=== PATIENT | male | born 1950 | race Caucasian/White ===

== ENCOUNTER → 2018-12-11 12:15 | Outpatient (CLI) | payer MEDICARE, OTHER, SELFPAY ==
--- NOTE | 2018-12-11 | DI.US.S_ITS ---
PROCEDURE: US PERIPH VENOUS LOW EXTREM RT INDICATIONS: RIGHT LEG SWELLING TECHNIQUE: Real-time imaging, as well as color and pulse Doppler interrogation, were performed of the lower extremity deep veins from the inguinal ligament to the popliteal fossa. COMPARISON: None. FINDINGS: The common femoral, femoral and popliteal veins are normally compressible, and free of intraluminal thrombus. Color and pulse Doppler demonstrate normal phasic intraluminal flow. There is normal augmentation response to distal compression maneuver. IMPRESSION: No DVT found right leg. Dictated by: Kavin Coe M.D. on 12/11/2018 at 13:12 Approved by: Kavin Coe M.D. on 12/11/2018 at 13:12
== END ==
PROVIDERS: PCP Family Medicine; Visit Provider Hospitalist
DX: M79.89 Other specified soft tissue disorders (principal)
CPT/HCPCS: 93971

== ENCOUNTER → 2018-12-30 08:02 | Outpatient (CLI) | payer MEDICARE, OTHER, SELFPAY ==
--- NOTE | 2018-12-30 08:04 | DI.RAD.S_ITS ---
PROCEDURE: XR KNEE RT 3V INDICATIONS: Right knee injury/ pain TECHNIQUE: 3 views of the knee were acquired. COMPARISON: None. FINDINGS: Bones: No fractures or dislocations. No suspicious bony lesions. There is moderate tricompartmental periarticular osteophyte formation. Soft tissues: Moderate joint effusion. N scattered small intra-articular loose bodies. o suspicious soft tissue calcifications. IMPRESSION: 1. Osteoarthritis. 2. Knee joint effusion. Intra-articular loose bodies. 3. No acute fracture. No osseous lesion. If symptoms or clinical suspicion for pathology persists, repeat plain films, or advanced imaging (CT, bone scan, or MRI) may be helpful for further assessment. Dictated by: Rios Maldonado M.D. on 12/30/2018 at 9:15 Approved by: Rios Maldonado M.D. on 12/30/2018 at 9:16
== END ==
PROVIDERS: PCP Family Medicine; Visit Provider Family Medicine
DX: M25.561 Pain in right knee (principal); M17.11 Unilateral primary osteoarthritis, right knee; M25.461 Effusion, right knee; M23.41 Loose body in knee, right knee
CPT/HCPCS: 73562

== ENCOUNTER → 2019-09-09 07:05 | Outpatient (CLI) | payer MEDICARE, OTHER, SELFPAY ==
[2019-09-09 08:37] LABS: Add Manual Diff / Slide Review NO; Basophils Absolute Auto 100 /uL (0-100); Basophils Percent Auto 0.8 % (0-2); Eosinophils Absolute Auto 300 /uL (0-450); Eosinophils Percent Auto 4.3 % (2-4); Hematocrit 45.3 % (41-53); Hemoglobin 15.2 g/dL (13.5-17.5); Lymphocytes Absolute Auto 1900 /uL (1100-4500); Lymphocytes Percent Auto 27.7 % (25-40); Mean Corpuscular HGB Conc 33.6 % (30-36); Mean Corpuscular Hemoglobin 29.4 PG (26-34); Mean Corpuscular Volume 87.4 fL (80-100); Monocytes Absolute Auto 700 /uL (0-900); Monocytes Percent Auto 9.5 % (3-14); Neutrophils Absolute Auto 4000 /uL (1500-7000); Neutrophils Percent Auto 57.7 % (50-75); Platelet Count 231 X10^3/uL (150-400); Red Blood Cell Count 5.19 X10^6/uL (4.5-5.9); Red Cell Distribution Width 13.5 % (11.6-14.8)
[2019-09-09 08:59] LABS: Alanine Aminotransferase 31 IU/L (<50); Albumin 3.9 g/dL (3.5-5.0); Albumin Globulin Ratio 1.4 (1.0-2.8); Alkaline Phosphatase 55 U/L (38-126); Aspartate Aminotransferase 31 IU/L (17-59); BUN Creatinine Ratio 22.2 (6-22); Bilirubin Total 0.6 mg/dL (0.2-1.3); Blood Urea Nitrogen 20 mg/dL (9-20); Calcium 9.7 mg/dL (8.4-10.2); Carbon Dioxide 28 mmol/L (22-32); Chloride 106 mmol/L (98-107); Cholesterol 142 mg/dL (140-199); Estimated Glomerular Filt Rate > 60.0 mL/min (>60); Globulin 2.8 g/dL (1.7-4.1); Glucose 88 mg/dL (80-110); HDL Cholesterol 45 mg/dL (40-60); HEMOLYSIS < 15 (0-50); LDL Cholesterol Calculated 87 mg/dL (<100); Sodium 141 mmol/L (137-145); Total Protein 6.7 g/dL (6.3-8.2); Triglycerides 51 mg/dL (35-150)
[2019-09-09 09:28] LABS: Prostate Specific Antigen Scrn 2.09 ng/mL (0.1-4.0)
== END ==
PROVIDERS: PCP Family Medicine; Referring Provider Family Medicine; Visit Provider Family Medicine
DX: E78.2 Mixed hyperlipidemia (principal); Z12.5 Encounter for screening for malignant neoplasm of prostate
CPT/HCPCS: 36415; 80053; 80061; 85025; G0103

== ENCOUNTER → 2020-03-14 13:41 | Outpatient (CLI) | payer MEDICARE, OTHER, SELFPAY ==
[2020-03-15 09:22] LABS: COVID19 Sendout Not Detected (Not Detect)
== END ==
PROVIDERS: PCP Family Medicine; Visit Provider Physician Assistant
DX: Z11.59 Encounter for screening for other viral diseases (principal)
CPT/HCPCS: 87635

== ENCOUNTER 2020-03-17 11:51 | Day surgery (SDC) | payer MEDICARE, OTHER, SELFPAY ==
--- NOTE | 2020-03-17 | PATH_ITS ---
[facility] Accession Number: [id number] . 01 Material submitted: . colon - COLON BIOPSY AT 35CM . 02 Diagnosis: Colon Polyp at 35 cm, Biopsy: Tubular adenoma. MRV 03/19/2020 1059 Local . 02 Electronically signed: . Cordell Kendrick MD, PhD, Pathologist NPI- [id number] . 01 Gross description: . COLON BIOPSY AT 35CM: Received in formalin is 1 fragment(s) of go, soft tissue measuring 0.4 x 0.3 x 0.3 cm submitted entirely in 1 cassette(s) /QBJ 03/18/2020 0924 Local . 02 Pathologist provided ICD-10: D12.6 . 02 CPT . 720915 Performed at: 01 [facility] [address] [facility], [place], [place] [id number] MD Tahir Jackson MD Phone: [phone] Performed at: 02 [facility] [address] [place], [place] [id number] MD Kimberly Torres MD Phone: [phone]
[2020-03-17 12:26] VITALS: BP 111/70; PULSE 50; RESP 14; TEMP 36.7; O2SAT 98; BMI 27.2
[2020-03-17] MEDS: SODIUM CHLORIDE 0.9% 1,000 ML 200 ML IV (12:33)
--- NOTE | 2020-03-17 12:58 | PM.HP.1 ---
History of Present Illness History of Present Illness Date Patient Seen: 03/17/20 Time Patient Seen: 12:58 Chief complaint: [facility] [place] Narrative: This is a 69-year-old man here for surveillance colonoscopy. He had a colonoscopy in 2011 were polyps were found, he was recommended to have a follow-up colonoscopy in 5 years. His other medical history includes a stroke in 2017 for which he has a small amount of residual visual deficit. He takes a daily aspirin for stroke prevention, and had a full workup it was not recommended anything else. He denies any melena, hematochezia, unexplained weight loss, unexplained abdominal pain. He is adopted and does not really know his family history relative to polyps or colon cancer. ROS: Thirteen system review is otherwise negative other than as mentioned below and in HPI. PE: GENERAL: Well groomed and cooperative. Appears stated age. Answers questions promptly and appropriately. Vital signs noted. HENT: Normocephalic, atraumatic. Hearing intact. EYES: Conjunctiva pink, sclera white, no periorbital swelling. CARDIOVASCULAR: Regular rate. No pedal edema. RESPIRATORY: Non-tachypneic, breathing comfortably on room air. GASTROINTESTINAL: Abdomen soft and non-distended GENITALURINARY: No flank tenderness. MUSCULOSKELETAL: Equal tone and mass bilaterally. SKIN: Warm, dry, soft, appropriate color for ethnicity. No other lesions, rashes, or wounds. NEURO: Alert and Oriented X 3. No gross sensory deficits, or cognitive issues. PSYCH: Appropriate affect and mood. Patient History Medical History Cardiac arrhythmia (Chronic 2006) Chicken pox (Resolved 1960) CVA (cerebral vascular accident) (Acute ~2016) Fractures (Resolved 1968) Measles (Resolved 1962) Mumps (Resolved 1960) Shoulder pain (Chronic 2003) Surgical History Anesthesia (Resolved) Bey's fracture of base of metacarpal bone of left thumb (Resolved 1969) History of hand surgery (Resolved 2009) Status post colonoscopy (Resolved 2013) Status post rotator cuff repair (Resolved 2005) Status post wrist surgery (Resolved 2007) Family & Social History Social History: household members spouse Tobacco & Substance use: Tobacco type smokeless tobacco Smoking Status Former smoker alcohol intake frequency 0-2 drinks per day Substance Use Type marijuana Meds Home Medications and Allergies Home Medications Medication Instructions Recorded Confirmed Type aspirin 81 mg PO QDAY #0 02/28/17 03/17/20 History naproxen sodium 220 mg tablet 220 mg PO BID PRN 12/11/18 03/17/20 History atorvastatin 10 mg tablet 10 mg PO HS #90 tab 08/22/19 03/17/20 Rx Allergies Allergy/AdvReac Type Severity Reaction Status Date / Time No Known Drug Allergies Allergy Verified 03/17/20 12:25 Exam Vital Signs (past 8 hours): - 03/17/20 12:26 Temperature 98.0 F Pulse Rate 50 L Respiratory Rate 14 Blood Pressure 111/70 Pulse Oximetry 98 Oxygen Delivery Method Room Air Assessment & Plan Assessment and plan (1) Personal history of colonic polyps: Status: Acute Assessment & Plan narrative: Risks and benefits of screening colonoscopy and possible polypectomy were discussed with the patient including risk of bleeding, perforation, need for additional procedures, risks of anesthesia. The patient desires to proceed with the colonoscopy procedure. COVID-19 COVID-19 status: Negative Result date/Date tested (Pos, Neg/Pending): 03/14/20 Time Spent With Patient Time with patient: 15-24 minutes Quality VTE Deep Vein Thrombosis/Pulmonary Embolism Present on Admission: No
[2020-03-17] MEDS: fentaNYL 250 MCG/5 ML INJ IV ×2 (13:05→13:13)
[2020-03-17] MEDS: MIDAZOLAM 5 MG/5 ML VIAL IV ×2 (13:05→13:13)
--- NOTE | 2020-03-17 13:28 | P.OP.ENDO_ITS ---
Operative Date/Time/Diagnoses Date of procedure: 03/17/20 Time of procedure: 13:28 Pre-op diagnosis: Personal history of colon polyps Post-op diagnosis: other (Single small colon polyp at 35 cm) Procedure & Clinicians Study performed: Colonoscopy Conscious sedation performed by the endoscopist Polypectomy with cold forceps Same procedure as scheduled: Yes Indications: Personal history of colon polyps. Due for follow-up colonoscopy. Surgeon: Natasha Andrade Procedure Notes Procedure in detail: The patient was brought to the room and placed in left lateral decubitus position with all bony prominences padded. A time-out was performed and then the patient was given procedural sedation starting with 4 mg of Versed and 100 mcg of fentanyl. Vitals were monitored throughout the procedure and remained stable. Once adequately sedated, the procedure was begun. A rectal exam was performed revealing no abnormalities. The colonoscope was then introduced to the rectum and advanced to the cecum in the usual fashion. The cecum was identified by the appendiceal orifice, the mucosal tri- fold, and the ileocecal valve. The scope was then retracted while rotating side to side and examining each mucosal fold. A small polyp was removed from the sigmoid colon at 35 cm using cold forceps. Moderate diverticulosis was seen throughout the descending and sigmoid colon. No signs of active diverticulitis were seen. At the conclusion of the procedure retroflexion was performed and small grade 1-2 internal hemorrhoids without stigmata of bleeding were seen. The scope was then withdrawn from the rectum the procedure was concluded. The patient tolerated the procedure well and was transferred to the PACU in stable condition. Scope withdrawal time: 9 Sedation minutes: 21 Findings: diverticulosis and polyp Specimen(s): other (Small polyp from 35 cm) Complications: none Impression: Diverticulosis, single small polyp from 35 cm Post-procedure Recommendations: Colonscopy in 10 years (If pathology is benign) Follow up: as needed Disposition: PACU
[2020-03-17 13:32] VITALS: BP 105/55; PULSE 50; RESP 15; TEMP 36; O2SAT 98
[2020-03-17 13:37] VITALS: BP 112/54; PULSE 46; RESP 13; TEMP 36.1; O2SAT 96
[2020-03-17 13:42] VITALS: BP 101/48; PULSE 58; RESP 14; TEMP 36; O2SAT 96
[2020-03-17 13:59] VITALS: BP 110/63; PULSE 44; RESP 16; TEMP 35.8; O2SAT 99
== END 2020-03-17 14:02 | disposition home or self-care (01) ==
PROVIDERS: PCP Family Medicine; Referring Provider Surgery; Visit Provider Surgery
PROC: 0DJD8ZZ Inspection of Lower Intestinal Tract, Via Natural or Artificial Opening Endoscopic (ICD-10-PCS; CPT 45378; principal; 2020-03-17 13:00)
DX: Z12.11 Encounter for screening for malignant neoplasm of colon (principal); D12.5 Benign neoplasm of sigmoid colon; K57.30 Diverticulosis of large intestine without perforation or abscess without bleeding; K64.1 Second degree hemorrhoids; Z86.010 Personal history of colon polyps; I69.398 Other sequelae of cerebral infarction; H53.9 Unspecified visual disturbance; Z79.82 Long term (current) use of aspirin; Z87.891 Personal history of nicotine dependence
CPT/HCPCS: 45380; 99152; J2250; J3010

== ENCOUNTER → 2021-05-28 07:30 | Outpatient (CLI) | payer MEDICARE, OTHER, SELFPAY ==
[2021-05-28 09:09] LABS: Add Manual Diff / Slide Review NO; Basophils Absolute Auto 100 /uL (0-100); Basophils Percent Auto 1.4 % (0-2); Eosinophils Absolute Auto 300 /uL (0-450); Eosinophils Percent Auto 5.3 % (2-4); Hematocrit 45.1 % (41-53); Hemoglobin 15.2 g/dL (13.5-17.5); Lymphocytes Absolute Auto 1900 /uL (1100-4500); Lymphocytes Percent Auto 29.2 % (25-40); Mean Corpuscular HGB Conc 33.8 % (30-36); Mean Corpuscular Hemoglobin 29.3 PG (26-34); Mean Corpuscular Volume 86.8 fL (80-100); Monocytes Absolute Auto 900 /uL (0-900); Neutrophils Absolute Auto 3200 /uL (1500-7000); Neutrophils Percent Auto 50.1 % (50-75); Platelet Count 215 X10^3/uL (150-400); Red Blood Cell Count 5.19 X10^6/uL (4.5-5.9); Red Cell Distribution Width 14.2 % (11.6-14.8); White Blood Cell Count 6.4 X10^3/uL (4.5-11.0)
[2021-05-28 09:18] LABS: Hemoglobin A1C% w Est Avg Glu 5.4 % (4.0-6.0)
[2021-05-28 09:50] LABS: BUN Creatinine Ratio 15.7 (6-22); Blood Urea Nitrogen 14 mg/dL (9-20); Calcium 9.4 mg/dL (8.4-10.2); Carbon Dioxide 28 mmol/L (22-32); Chloride 103 mmol/L (98-107); Estimated Glomerular Filt Rate > 60.0 mL/min (>60); Glucose 103 mg/dL (80-110); HEMOLYSIS < 15 (0-50); Potassium 4.6 mmol/L (3.4-5.1); Sodium 138 mmol/L (137-145)
== END ==
PROVIDERS: PCP Internal Medicine; Referring Provider Orthopaedic Surgery; Visit Provider Orthopaedic Surgery
DX: Z01.818 Encounter for other preprocedural examination (principal); R73.9 Hyperglycemia, unspecified; M25.562 Pain in left knee; Z01.812 Encounter for preprocedural laboratory examination
CPT/HCPCS: 36415; 80048; 83036; 85025; 93005; 93010

== ENCOUNTER → 2021-06-18 09:26 | Outpatient (CLI) | payer MEDICARE, OTHER, SELFPAY ==
[2021-06-18 11:29] LABS: COVID19 -Nasal RAPID Negative (Negative)
== END ==
PROVIDERS: PCP Internal Medicine; Visit Provider Nurse Practitioner Family
DX: Z20.822 Contact with and (suspected) exposure to COVID-19 (principal)
CPT/HCPCS: 87635; C9803

== ENCOUNTER 2021-06-21 11:08 | Day surgery (SDC) | payer MEDICARE, OTHER, SELFPAY ==
[2021-06-15 08:08] VITALS: BMI 32.5
[2021-06-21] VITALS (12 sets, daily range): BP systolic 96–133; BP diastolic 51–79; PULSE 50–63; RESP 11–18; TEMP 36.3–36.9; O2SAT 91–100; BMI 32.5
--- NOTE | 2021-06-21 06:00 | DI.RAD.S_ITS ---
PROCEDURE: XR KNEE LT 1TO2V INDICATIONS: post op total knee TECHNIQUE: 2 view(s) of the knee acquired. COMPARISON: [facility], CR, XR KNEE RT 3V, 12/30/2018, 8:06. FINDINGS: Bones: Patient is status post knee joint arthroplasty. Hardware components are in expected positions. Visualized bony structures are intact. Soft tissues: Overlying postoperative changes are noted. IMPRESSION: Expected appearance following knee arthroplasty. Dictated by: Rios Maldonado M.D. on 06/21/2021 at 15:54 Approved by: Rios Maldonado M.D. on 06/21/2021 at 15:54
[2021-06-21] MEDS: ACETAMINOPHEN 325 MG TABLET 975 MG PO (11:39)
[2021-06-21] MEDS: CELECOXIB 200 MG CAPSULE PO (11:42)
[2021-06-21] MEDS: PREGABALIN 75 MG CAPSULE PO (11:42)
[2021-06-21] MEDS: LACTATED RINGERS 1,000 ML 42 ML IV ×2 (12:15→15:55)
--- NOTE | 2021-06-21 12:19 | SUR.PREOP ---
preop: confirimed left knee as op site. clipping and cleaning done per hospital policy. Ready for OR.
--- NOTE | 2021-06-21 12:41 | PM.PREOP ---
Pre-operative Note COVID-19 COVID-19 status: Negative Result date/Date tested (Pos, Neg/Pending): 06/18/21 Interval Note History & Physical reviewed/Exam performed by Physician: Yes Changes to H&P: No
[2021-06-21] MEDS: CEFAZOLIN 2 GM/20 ML SYRINGE IV (13:51)
[2021-06-21] MEDS: TRANEXAMIC ACID 1,000 MG VIAL 1000 MG INJ ×2 (13:52→15:05)
--- NOTE | 2021-06-21 14:05 | SUR.OPER ---
Supine on padded OR bed. Pillow under head, arms secured on padded armboards <90 degree abduction. Safety belt across torso. Non-operative leg secured with tape over blanket over lower leg. Operative leg secured in DeMayo/Blake/Nathe positioner. Foam padded brace at thigh of operative leg.
[2021-06-21] MEDS: MORPHINE 4 MG/ML INJ INJ (14:13)
[2021-06-21] MEDS: BUPIVACAINE 0.25% (PF) 60 ML, EPINEPHrine 0.3 MG INJ (14:14)
--- NOTE | 2021-06-21 15:26 | P.OP_ITS ---
Operative Date/Time/Diagnoses Date of procedure: 06/21/21 Time of procedure: 15:26 Pre-op diagnosis: Left knee osteoarthritis Post-op diagnosis: same Procedure & Clinicians Procedure: Left total knee replacement Same procedure as scheduled: Yes Indications: The patient has had progressively worsening left knee pain with radiographic changes consistent with arthritis. Non-operative management has failed and the patient has requested total knee replacement. The risks, benefits and alternatives to surgery were discussed with the patient prior to proceeding. Risks discussed included, but were not limited to, failure to relieve pain, stiffness, infection, nerve damage, deep venous thrombosis, pulmonary embolism, stroke, coma, heart attack, permanent paralysis and , as well as the potential need for eventual revision of the prosthetic. Surgeon: Jamal Gonzalez Hotel Reservation Agent: Phlylis Mota Click Yes if Unassisted: No Anesthesia Type: General, Spinal and Local Operative Notes Findings: Significant medial and patellofemoral osteoarthritis with mild lateral osteoarthritis. Closure Type: primary Specimen(s): none sent Prosthetic devices, grafts, tissues, transplants, or devices: Implants used in this procedure were manufactured by the [employer] and [employer] and included the BCS II Journey total knee replacement with a size 6 left cobalt chromium femur, a size 6 left non porous tibial base plate, a 9 mm cross-linked polyethylene insert and a 35 mm oval Lorena II patella. Applied: implant(s) Estimated Blood Loss (mL): 25 Blood products transfused: none Tourniquet time (min): 47 Procedure in detail: The patient was seen in the pre-operative area, where the left knee was identified as the operative site and this was marked with my initials. The patient received pre-operative antibiotics, and was taken to the operating room and placed on the operative table in the supine position. After satisfactory anesthesia, a multimedia authoring specialist out was performed. The left leg was encircled with a tourniquet about the proximal thigh, and the leg was prepared from the toes to the tourniquet with ChloroPrep in the usual fashion and draped through sterile drapes. The leg was elevated and exsanguinated with Eschmark bandage and the tourniquet inflated to 250 mmHg pressure. The knee was approached through an approximately 18 cm incision centered over the patella and carried into the knee through a medial parapatellar arthrotomy. The anterior osteophytes and soft tissues were removed. The rotational landmarks of Osceola's line and the transepicondylar axis were marked on the femur with electrocautery, and intramedullary guide holes for the femur and tibia were created. The distal femoral cut was made in 6 degrees of valgus using the intramedullary guide at the primary cut setting. The proximal tibial cut was then made using the intramedullary guide, taking 9 mm of bone off the less involved side. The extension gap was checked and the rotation of the femoral component confirmed with the gap balancing blocks. The anterior, posterior and chamfer cuts were then made. The posterior osteophytes and soft tissues were then removed. The posterior capsule was injected with part of a mixture of 60 ml 0.25% Marcaine mixed with 20 ml Exparel and 4 mg of morphine for post-operative pain control. The remainder of this mixture was injected into the capsule and subcutaneous tissues during cement curing. The tibia was prepared with the rotation set by an extra medullary guide. Trial tibial and femoral components were then placed and the intercondylar notch cut through the femoral trial. Range of motion was 0-135 degrees, with good stability throughout the range. The patella was then cut to accommodate the patellar prosthetic. There was no need for a lateral release. The trials were then removed, and the femoral hole plugged with a bone plug. The bone was prepared with pulsatile lavage, and dried with a sponge. Cement was applied and the final prosthetics placed. Excess cement was removed during and after cement curing. After confirming there was no extruded cement posteriorly, the final tibial insert was placed. The knee was copiously irrigated and the tourniquet deflated. Hemostasis was obtained. The capsule was closed with interrupted # 2 polyester sutures. The subcutaneous layer was closed with 3-0 Vicryl, and the skin with a running 3-0 V-Lock suture and Dermabond. An Aquacel Ag dressing was applied and the patient was taken to recovery having tolerated the procedure well. Complications: none Post-operative Condition: stable Disposition: PACU Plan for aftercare: The patient will be maintained on a standard total knee replacement protocol with weight bearing as tolerated. The patient will receive aspirin and sequential compression devices for DVT prophylaxis. The patient will be discharged home when safe for the home environment.
[2021-06-21] MEDS: OXYCODONE IR 5 MG TABLET PO (16:00)
[2021-06-21] MEDS: IBUPROFEN 400 MG TABLET PO ×2 (17:33→20:49)
[2021-06-21] MEDS: LACTATED RINGERS 1,000 ML 100 ML IV (17:33)
--- NOTE | 2021-06-21 19:03 | PC.NURSE ---
pt on 2L 95%. pt became very sweaty, he is not normally like this at home. blankets were taken off, but still remained to be sweating. pt reports he takes two drinks a day. he had one beer last night and he had some drinks last monday. pt's vitals are stable. afebrile. no chills. notified provider aboriginal education teacher . will continue to monitor pt.
[2021-06-21] MEDS: DOCUSATE 100 MG CAPSULE PO (20:49)
[2021-06-21] MEDS: ACETAMINOPHEN 325 MG TABLET 650 MG PO (20:49)
[2021-06-21] MEDS: ASPIRIN EC 81 MG TABLET PO (20:49)
[2021-06-21] MEDS: ATORVASTATIN 20 MG TABLET 10 MG PO (20:50)
--- NOTE | 2021-06-21 23:50 | PC.NURSE ---
Patient is alert and oriented. Breath sounds CTA; on oxygen at 2L/min per NC with sat of 99% so now attempting to titrate down/off. HRR but bradycardic with rate in 50's but states his normal is in the 40's. Denied nausea. BT hypoactive and has not yet passed flatus. Had not voided since return from surgery but was able to urinate at 2330. Turns himself in bed. Gait not assessed at this time. Denies pain/numbness in left LE and is exercising frequently but has limited ROM. Aquacel dressing to left knee covered with dakota wrap is CDI. Wearing bilateral calf SCD's. Fall risk score is moderate and bed alarm is activated.
[2021-06-22] MEDS: IBUPROFEN 400 MG TABLET PO ×4 (01:07→13:11)
[2021-06-22 01:11] VITALS: BP 124/68; PULSE 54; RESP 12; TEMP 36.6; O2SAT 95
[2021-06-22] MEDS: LACTATED RINGERS 1,000 ML 100 ML IV (03:18)
[2021-06-22 05:14] VITALS: BP 109/63; PULSE 42; RESP 12; TEMP 36.2; O2SAT 93
[2021-06-22 05:50] LABS: Hematocrit 38.7 % (41-53); Hemoglobin 13.2 g/dL (13.5-17.5)
[2021-06-22 07:15] VITALS: BP 120/80; PULSE 52; RESP 18; O2SAT 93
[2021-06-22] MEDS: ACETAMINOPHEN 325 MG TABLET 650 MG PO (08:18)
[2021-06-22] MEDS: ASPIRIN EC 81 MG TABLET PO (08:19)
[2021-06-22 09:00] VITALS: TEMP 36.7
[2021-06-22] MEDS: DOCUSATE 100 MG CAPSULE PO (09:26)
--- NOTE | 2021-06-22 10:03 | PC.NURSE ---
Addendum entered by Romeo Ng R.N. 06/22/21 14:56: Pt discharged to care of . IV d/c'd intact, D/c instructions given and questions answered. Pt assisted to w/c with fww. Gait steady. Pt escorted to private car by Shikha KUAR. Addendum entered by Romeo Ng R.N. 06/22/21 13:05: Pt continues up in chair offers no overt complaint. Anticipates coming around 14:00. Will do d/c instructions and take out IV at that time. Original Note: Pt alert and oriented, in good spirits, anticipating discharge after ok from PT. Left lower extremity dressing CDI. good Pedal pulses. Airway clear on auscultation. Bowel Tones active, taking diet without nausea.
--- NOTE | 2021-06-22 10:26 | PM.DS.1 ---
History of Present Illness History of Present Illness Date Patient Seen: 06/22/21 Time Patient Seen: 07:45 Chief complaint: Knee pain Narrative: Patient states his pain is [id number]. Denies fever or chills. No nausea or vomiting. Discharge Providers Provider Discharge Date: 06/22/21 Primary care physician: Kip Blanco MD Consults: 06/21/21 17:14 Consult to Discharge Planning Routine Comment: Consult to Physical Therapy Evaluate & Treat Comment: Physician Instructions: postop TKA protocol Discharge provider: Elkin Richardson PA-C Summary Hospital Course Discharge Diagnosis: Left knee osteoarthritis Hospital Course: Left total knee replacement Same procedure as scheduled: Yes Indications: The patient has had progressively worsening left knee pain with radiographic changes consistent with arthritis. Non-operative management has failed and the patient has requested total knee replacement. The risks, benefits and alternatives to surgery were discussed with the patient prior to proceeding. Risks discussed included, but were not limited to, failure to relieve pain, stiffness, infection, nerve damage, deep venous thrombosis, pulmonary embolism, stroke, coma, heart attack, permanent paralysis and , as well as the potential need for eventual revision of the prosthetic. Surgeon: Jamal Gonzalez Tube Buffer: Phyllis Mota Click Yes if Unassisted: No Anesthesia Type: General, Spinal and Local Operative Notes Findings: Significant medial and patellofemoral osteoarthritis with mild lateral osteoarthritis. Closure Type: primary Specimen(s): none sent Prosthetic devices, grafts, tissues, transplants, or devices: Implants used in this procedure were manufactured by the [employer] and included the BCS II Journey total knee replacement with a size 6 left cobalt chromium femur, a size 6 left non porous tibial base plate, a 9 mm cross-linked polyethylene insert and a 35 mm oval Lorena II patella. Applied: implant(s) Estimated Blood Loss (mL): 25 Blood products transfused: none Tourniquet time (min): 47 Patient admitted to the hospital for left total knee replacement. Patient consented to the same. Patient taken to the operating room on June 21, 2021. Patient back in his room recovering well as in stable condition. Patient will be discharged home today in stable condition. Exam Vital Signs (past 8 hours): - 06/22/21 05:14 06/22/21 07:15 06/22/21 09:00 Temperature 97.1 F L 98.1 F Pulse Rate 42 L 52 L Respiratory Rate 12 18 Blood Pressure 109/63 120/80 Pulse Oximetry 93 93 Oxygen Delivery Method Nasal Cannula Oxygen Flow Rate 1 Narrative Exam Narrative: 70-year-old male resting comfortably in bed in no apparent distress. Dressing is Clean, dry, intact.. Sensation grossly intact to light touch bilateral lower extremities. Motor functions intact bilateral lower extremities. Objective Labs Result Diagrams: 06/22/21 05:25 Labs: Laboratory Results - last 24 hr 06/22/21 05:25 Hgb 13.2 L Hct 38.7 L PFSH Medical History Anxiety Cardiac arrhythmia (2006) Chicken pox (1960) CVA (cerebral vascular accident) (~2016) Diverticulosis Fractures (1968) HLD (hyperlipidemia) Measles (1962) Mumps (1960) Osteoarthritis Pneumonia RBBB (right bundle branch block) Shoulder pain (2003) Sinus bradycardia Surgical History Anesthesia Bey's fracture of base of metacarpal bone of left thumb (1969) History of hand surgery (2009) History of vasectomy (03/1995) Hx of colonoscopy (03/17/20) Hx of tonsillectomy Status post colonoscopy (2013) Status post rotator cuff repair (2005) Status post wrist surgery (2007) Social History household members: spouse Smoking Status: Never smoker Smokeless tobacco user: chewing tobacco alcohol intake: current substance use type: marijuana Discharge Assessment & Plan Assessment and Plan Assessment: Patient progressing as expected status post left total knee replacement Plan of Treatment: Discharge home today in stable condition Discharge Plan Discharge Plan Patient Disposition: Home Discharge orders & Medications Discharge Orders: Discharge (Order); Ordered 06/22/21 Ordered By: Elkin Richardson Prescriptions: New acetaminophen 325 mg Tablet 650 mg PO TID Qty: 60 0RF aspirin 81 mg Tablet,Delayed Release (Dr/Ec) 81 mg PO BID Qty: 60 0RF ibuprofen 400 mg Tablet 400 mg PO Q4HR Qty: 60 0RF oxycodone 10 mg Tablet 10 mg PO Q3HR PRN (Reason: Pain, Severe (7-10)) Qty: 60 0RF Continued atorvastatin [Lipitor] 10 mg tablet 10 mg PO HS Qty: 90 3RF Discontinued aspirin 81 MG tablet,delayed release (DR/EC) 81 mg PO QDAY Qty: 0 0RF ibuprofen 200 mg Capsule 200 - 600 mg PO DAILY PRN (Reason: Pain) 0RF Follow up/Referrals: Kip Blanco MD [Primary Care Provider] - Jamal Gonzalez MD [Physician] - (2 weeks) Diet/Activity/Treatments Diet: Diet as Tolerated Activity: Weight-bearing as tolerated Cold/Heat Therapy: Ice to knee as needed Skin/Wound/Dressing Care Report to your healthcare provider any signs of infection, such as:: chills, fever, increased pain, unusual drainage and unusual redness Dressing: Keep dressing clean and dry, may remove Doc wrap in 24-48 hours, leave dressing in place Visit Report/Discharge Packet Instructions: DI for Knee Replacement Stand Alone Forms: Surgery Discharge Discharge Data Primary Care Provider: Kip Blanco Attending Provider: Jamal Gonzalez Quality VTE Deep Vein Thrombosis/Pulmonary Embolism Present on Admission: No
[2021-06-22 11:00] VITALS: BP 108/64; PULSE 51; RESP 18; TEMP 36.8; O2SAT 97
--- NOTE | 2021-06-22 11:31 | CM.DANOTE ---
DCP/Assessment: Reviewed chart. Patient is a 70yr old male admitted [facility] for left TKA performed on 06-21-[address] Gonzalez. PCP is Kip Blanco. Primary payor is 1)Medicare 2)Commercial Insurance. Met with patient explained CM/SW role. Patient alert and oriented resting in bed at time of visit. Patient reports that he hopes to d/c home today. Currently PT evaluation is pending. Patient reports that he will be returning home with supportive spouse. Patient reports that he has all needed DME and plans to start outpatient therapy next week in [place]. At this time do not anticipate any additional d/c planning needs. P: Home when stable. CM team to continue to follow if need arise. KJS Discharge Planning/Care Management Advanced directive, confirm from FAMILY Start: 06/21/21 16:55 Freq: Q24H Status: Active Protocol: Document 06/21/21 18:24 HCW (Rec: 06/21/21 18:25 HCW [id number]) Advance Directive, confirm on record Time 18:24 Person contacted patient Copy received No CM Discharge Assessment Start: 06/22/21 11:27 Freq: Status: Active Protocol: Document 06/22/21 11:28 KJS (Rec: 06/22/21 11:30 KJS [id number]) Discharge Planning Assessment Assigned Work Distributor EUNICE Paredes Contact Information Rose Sánchez (spouse) # Advance Directives? Yes: POLST Advance Directives on File No History Provided By Patient,Medical Record Prior Living Arrangements House Household Members spouse Type of transporation used prior to Drives own vehicle admit Independent with ADL's Yes Is patient alert and oriented? Yes Caregiver for Another No DME Already Rented / Owned FWW / Walker Patient/Family Preference OP PT Therapy Comment Plans to start outpatient therapy next week in [place] . Barriers to Discharge No Discharge Plan Home Transportation Arrangement Family to provide transport. Referrals Initiated None needed Whiteboard Updated in Patient Room with Yes name and ext. # of Work Distributor Review Status In Process Next Review Type Continued Stay Review Pre-Anesthesia Assessment Start: 06/15/21 08:08 Freq: Status: Complete Protocol: Document 06/15/21 08:08 CAB (Rec: 06/15/21 09:09 CAB [id number]) Pre-Anesthesia Assessment Preferred Name Jeff Patient Information Reviewed Via Phone Assessment Assessment Completed With Patient H&P Completed Within 30 Days Yes Diagnostic Results BMP/CMP,CBC,EKG Comment Labs/EKG @ [facility] 05/28/21, COVID screen @ 06/18/21 Primary Care Provider Kip Blanco Seen Specialist in Last 12 Months Yes Specialist Seen Orthopedist Primary Language Nam[place]ian Jig Mill Operator Required No Height 172.72 cm Weight 97.069 kg Body Mass Index (BMI) 32.5 Hearing Ability Normal Visual Assist Glasses Dentition Type Teeth, Natural Present Barriers to Learning Visual Comment Residual visual deficit s/p stroke 2017 Hx Anesthesia Reactions No Hx Family Anesthesia Reaction No: Pt is adopted Hx Malignant Hyperthermia No Hx Blood Transfusions No Hx Blood Transfusion Reaction No Anesthesia Review Requested No alcohol intake current alcohol intake frequency a few times a week Smoking Status Never smoker Tobacco type smokeless tobacco how long ago did patient quit smoking 1998 Substance Use Type marijuana Comment Advised not to smoke marijuana 24 hours prior to surgery Pain Present Pain Reported Musculoskeletal Symptoms Abnormal Gait,Difficulty Walking,Joint Pain,Muscle Weakness History of Falling (Recent or History of Yes ) Patient is completely paralyzed or No completely immobile Mental Status Oriented to own ability Is patient on oxygen? No Does patient have GARCIAS/SOB No Hx Sleep Apnea No CPAP/BIPAP use not prescribed Currently Taking a Beta [place] No Hx Chest Pain No Hx SOB No Hx Syncope or Dizziness No Anti-Coagulant Therapy Yes: ASA 81mg s/p stroke 2016 Has a Roundhouse Firer/Fireman No Cardiac Testing No Hx Pacemaker/ICD No Pacemaker Rep Required? No Diet Type At Home Regular dysphagia No Bladder Pattern Nocturia Urinary Catheter Present No Hx Urinary Self Catheterization No Diabetes No HgbA1C 5.4 Date 05/28/21 Presence of External or Internal Medical Yes: Left wrist Devices Have you had any close contact with No someone diagnosed with COVID-19? Received a COVID vaccine? Yes: +Booster Received all doses? Yes Marital Status Lives With spouse Support System Spouse Does the Patient Have Assistance After Yes Surgery Patient Discharge Plan Description Return Home Comment Pt advised overnight length of stay per surgeon Feels Safe in Current Environment Yes Been Physically Hurt or Threatened By a No Person in Current Environment Do you have thoughts of harming yourself None or others? Are you currently considering suicide? No Do you have a plan to hurt yourself or No Plan others? Do You Have Any Spiritual Beliefs That No May Affect Your HC Choices? Do You Have Any Cultural Practices That No May Affect Your HC Choices? Comment Agnostic Who Can We Speak to About Patient's Care Family, friends Identifying Code for Release of Patient Declines to issue Information Health Care Proxy/Next of Kin Rose () Health Care Proxy Emergency Contact Name Rose () Emergency Contact Advance Directives? Yes: POLST Requested Patient Bring Advanced Yes Directives DOS Power of Communications Department Head No PAC Instructions Durable medical equipment, Medications to take/avoid, Nasal antibiotic,No ETOH/ petroleum product on skin DOS, NPO,Post-op transportation,Pre -surgical wash,Sensory aids, Sturdy shoes/comfortable clothes,Do not bring valuables and remove jewelry
--- NOTE | 2021-06-22 11:35 | PT.IIE ---
Current Diagnoses Unilateral primary osteoarthritis, left knee (06/21/21) Surgery Performed Operation Date: 06/21/21 12:45 Actual Procedures p Total Knee Arthroplasty(Left) - Jamal Gonzalez MD Surgical History (Last Reviewed 06/22/21 @ 10:28 by Elkin Richardson PA-C) Anesthesia Bey's fracture of base of metacarpal bone of left thumb (1969) Status post colonoscopy (2013) Status post rotator cuff repair (2005) Medical History (Last Reviewed 06/22/21 @ 10:28 by Elkin Richardson PA-C) Anxiety Cardiac arrhythmia (2006) Chicken pox (1960) CVA (cerebral vascular accident) (~2016) Diverticulosis Fractures (1968) HLD (hyperlipidemia) Measles (1962) Mumps (1960) Osteoarthritis Pneumonia RBBB (right bundle branch block) Shoulder pain (2003) Sinus bradycardia Physical Therapy Inpatient Evaluation/Re-Eval M1 PT/OT-IP Prior Functional Status Start: 06/22/21 13:40 Freq: NEEDED Status: Active Protocol: Document 06/22/21 11:35 AB (Rec: 06/22/21 13:46 AB [id number]) Medical Review Prior Functional Status Medical History Reviewed Yes Communication able to make needs known Mobility and Gait pt stated that he is independent with all mobilities and ambulation without AD Social History Household Members spouse Living Arrangements House Number of Floors (Floors) Two Floors Number of Stairs To Enter/Railing? pt will stay on main level of the house; no steps to enter Home Environment Standard Height Toilet,Tub/ Shower Home Equipment Front Wheel Walker,Shower Seat with Backrest,Grab Bars In Shower M2 PT-IP Current Condition Start: 06/22/21 13:40 Freq: NEEDED Status: Active Protocol: Document 06/22/21 11:35 AB (Rec: 06/22/21 13:46 AB [id number]) Physical Therapy Current Condition Current Condition Evaluation Date 06/22/21 Treatment Diagnosis s/p L TKA; difficulty in walking Onset Date 06/21/21 M3 PT-IP Subjective Start: 06/22/21 13:40 Freq: NEEDED Status: Active Protocol: Document 06/22/21 11:35 AB (Rec: 06/22/21 13:46 AB [email or web address]) Subjective Physical Therapy Visit Type Type Initial Evaluation Visit Start Time 11:35 Visit Stop Time 12:05 Total Visit Minutes 30 Number of SAUSAGE WRAPPER Visits 0 Physical Therapy Visit Comments Patient Comments agreeable to do PT Therapy Pain Assessment Pain When Pain Assessed At Rest Pain Present Pain Present Pain Reported Location Left Knee Intensity 3 Scale Used increases to 6 with mobility Pain Management Techniques Apply Cold,Modification of Treatment,Re-positioning, Timing of Activity with Medications M4 PT-IP Mobility and Gait Start: 06/22/21 13:40 Freq: NEEDED Status: Active Protocol: Document 06/22/21 11:35 AB (Rec: 06/22/21 13:46 [facility]-Bed Mobility Assessment Supine to Sit Supine to Sit Standby Assistance PT-Transfer Assessment Sit to and From Stand Sit to and from Stand Standby Assistance Equipment Transfer Assistive Device Gait Belt,Front Wheeled Walker Orthotic/Prosthetic Devices or Brace: No Transfers Transfer Destination Chair Transfer Technique ambulated Transfer Ability Level of Assist Standby Assistance,Contact Guard Assistance,1 Person Assistance,Use of Upper Extremities Comments Mobility Comments completed supine to sit SBA. pt was able to sit on EOB SBA. completed sit to stand SBA and ambulated in room initially requiring CGA and cues for L quads sets. able to ambulate SBA midway ambulation using FWW. agreed to sit on chair. positioned on chair. call light and table placed within reach. Pt without any concerns. Gait Assessment Gait Gait Assistance Required: Standby Assistance,Contact Guard Assist Distance (Feet) 60 Able to Maintain Weight Bearing Status Yes During Gait Assistive Devices Assistive Device Gait Belt,Front Wheeled Walker Orthotic/Prosthetic Devices or Brace: No Gait Deviations General Gait Pattern Antalgic,Decreased Stride Length,Decreased Feet Clearance,Step-to Gait Factors Limiting Gait Function Factors Limiting Gait Function Decreased Activity Tolerance, Decreased Strength,Limited Range of Motion,Pain,Poor Balance PT-Balance Assessment Sitting Balance and Reactions Static Sitting Balance Ability Good Dynamic Sitting Balance Ability Good Standing Balance and Reactions Static Standing Balance Ability Fair Dynamic Standing Balance Ability Fair Device Used FWW M5 PT-IP Objective Assessments Start: 06/22/21 13:40 Freq: NEEDED Status: Active Protocol: Document 06/22/21 11:35 AB (Rec: 06/22/21 13:46 AB [id number]) Orientation Orientation/Cognition Level of Alertness Alert Orientation Name,Place,Situation Language Function Ability No Deficits Noted Safety Awareness Understands Safety Issues Memory Description No Deficits Noted Gross Range of Motion Lower Extremity ROM Assessment Left Impaired Impairments L knee flexion: ~ 50 degrees L knee extension: 30 deg less to 0 Strength Lower Extremity Strength Assessment Left Impaired Hip 4/5 Knee 3+/5 Sensation Assessment Sensation Gross Sensation WNL Muscle Tone Muscle Tone WNL Yes M6 PT-IP Treatment Start: 06/22/21 13:40 Freq: NEEDED Status: Active Protocol: Document 06/22/21 11:35 AB (Rec: 06/22/21 13:46 AB [id number]) Physical Therapy Treatment Education Education Provided Precautions,Weight Bearing Status,Post-Op Packet,Safety M7 PT-IP Assessment and Plan Start: 06/22/21 13:40 Freq: NEEDED Status: Active Protocol: Document 06/22/21 11:35 AB (Rec: 06/22/21 13:46 AB [email or web address]) PT Summary Assessment and Plan Potential Rehabilitation Potential Good Status of Condition at Evaluation Stable Summary Impairments Pain,ROM,Strength,Balance, Coordination,Sensation,Tone, Cognition,Bed Mobility, Transfers,Gait,Activity Tolerance Assessment Summary pt requiring SBA with mobility and plans to go home with spouse to assist him. pt has outpt PT set up. pt may go home when medically stable. Goals Bed Mobility Goal Independent Transfer Goal Independent,Front Wheeled Walker Gait Goal Independent,Front Wheel Walker Gait Distance 300 Days to Meet Goals 3 Frequency of Treatment Frequency Of Treatment Twice a Day Treatment Plan Physical Therapy Treatment Plan Bed Mobility Training,Transfer Training,Gait Training, Therapeutic Exercise,Balance Retraining,Post Op Education, Discharge Planning,Hot or Cold Pack,Neuromuscular Re-ed, Coordination Retraining,Manual Therapy Weight Bearing Status Weight Bearing Status Weight Bear as Tolerated Allowed Weight Bearing Amount (enter % LLE WBAT or #) (%) Recommendations To Nursing Amount of Assist Needed 1 Person Assist Discharge Recommendations PT Discharge Recommendations Home with Assistance, Outpatient PT Transportation Needs at Discharge Private Vehicle
== END 2021-06-22 14:55 | disposition home or self-care (01) ==
LOC: OR 11:09 → AC 11:10
PROVIDERS: PCP Internal Medicine; Referring Provider Orthopaedic Surgery; Visit Provider Orthopaedic Surgery
PROC: 0SRD0JZ Replacement of Left Knee Joint with Synthetic Substitute, Open Approach (ICD-10-PCS; CPT 27447; principal; 2021-06-21 12:45)
DX: M17.12 Unilateral primary osteoarthritis, left knee (principal)
CPT/HCPCS: 27447; 36415; 73560; 85014; 85018; 97161; C1776; J0171; J0690; J2250; J2270; J2274; J2405; J3010

== ENCOUNTER → 2022-05-09 08:11 | Outpatient (CLI) | payer MEDICARE, OTHER, SELFPAY ==
[2021-06-21 11:18] VITALS: BMI 32.5
[2022-05-09 09:44] LABS: Add Manual Diff / Slide Review NO; Basophils Absolute Auto 100 /uL (0-100); Basophils Percent Auto 1.7 % (0-2); Eosinophils Absolute Auto 300 /uL (0-450); Eosinophils Percent Auto 5.4 % (2-4); Hematocrit 43.8 % (41-53); Hemoglobin 14.9 g/dL (13.5-17.5); Lymphocytes Absolute Auto 1600 /uL (1100-4500); Lymphocytes Percent Auto 26.4 % (25-40); Mean Corpuscular HGB Conc 34.1 % (30-36); Mean Corpuscular Hemoglobin 29.5 PG (26-34); Mean Corpuscular Volume 86.5 fL (80-100); Monocytes Absolute Auto 600 /uL (0-900); Monocytes Percent Auto 9.7 % (3-14); Neutrophils Absolute Auto 3400 /uL (1500-7000); Neutrophils Percent Auto 56.8 % (50-75); Platelet Count 218 X10^3/uL (150-400); Red Blood Cell Count 5.06 X10^6/uL (4.5-5.9); Red Cell Distribution Width 14.4 % (11.6-14.8)
[2022-05-09 10:30] LABS: Blood Urea Nitrogen 15 mg/dL (9-20); Carbon Dioxide 27 mmol/L (22-32); Chloride 105 mmol/L (98-107); Estimated Glomerular Filt Rate > 60 mL/min (>60); Glucose 99 mg/dL (80-110); HEMOLYSIS < 15 (0-50); Potassium 4.4 mmol/L (3.4-5.1); Sodium 141 mmol/L (137-145)
== END ==
PROVIDERS: PCP Internal Medicine; Referring Provider Orthopaedic Surgery; Visit Provider Orthopaedic Surgery
DX: Z01.818 Encounter for other preprocedural examination (principal); M25.561 Pain in right knee; Z01.812 Encounter for preprocedural laboratory examination
CPT/HCPCS: 36415; 80048; 85025; 93005

== ENCOUNTER → 2022-06-14 10:19 | Outpatient (CLI) | payer MEDICARE, OTHER, SELFPAY ==
[2021-06-21 11:18] VITALS: BMI 32.5
[2022-06-14 10:55] LABS: COVID19 -Nasal RAPID Negative (Negative)
== END ==
PROVIDERS: PCP Physician Assistant; Referring Provider Orthopaedic Surgery; Visit Provider Orthopaedic Surgery
DX: Z20.822 Contact with and (suspected) exposure to COVID-19 (principal)
CPT/HCPCS: 87635; C9803

== ENCOUNTER 2022-06-15 06:17 | Day surgery (SDC) | payer MEDICARE, OTHER, SELFPAY ==
[2021-06-21 11:18] VITALS: BMI 32.5
[2022-06-14 08:13] VITALS: BMI 32.6
[2022-06-15] VITALS (12 sets, daily range): BP systolic 92–147; BP diastolic 41–95; PULSE 42–82; RESP 14–22; TEMP 36.1–36.7; O2SAT 93–96; BMI 30.4
--- NOTE | 2022-06-15 06:00 | DI.RAD.S_ITS ---
PROCEDURE: XR KNEE RT 1TO2V INDICATIONS: prosthesis placement TECHNIQUE: 2 view(s) of the knee acquired. COMPARISON: [facility], CR, XR KNEE LT 1TO2V, 06/21/2021, 15:29. FINDINGS: Bones: Patient is status post knee joint arthroplasty. Hardware components are in expected positions. Visualized bony structures are intact. Soft tissues: Overlying postoperative changes are noted. IMPRESSION: Status post right total knee arthroplasty. Dictated by: Jeanna Johnson M.D. on 06/15/2022 at 10:37 Approved by: Jeanna Johnson M.D. on 06/15/2022 at 10:38
--- NOTE | 2022-06-15 07:26 | PM.PREOP ---
Pre-operative Note COVID-19 COVID-19 status: Negative Result date/Date tested (Pos, Neg/Pending): 06/14/22 Interval Note History & Physical reviewed/Exam performed by Physician: Yes Changes to H&P: No
[2022-06-15] MEDS: ACETAMINOPHEN 325 MG TABLET 975 MG PO (07:37)
[2022-06-15] MEDS: PREGABALIN 75 MG CAPSULE PO (07:39)
[2022-06-15] MEDS: CELECOXIB 200 MG CAPSULE PO (07:39)
[2022-06-15] MEDS: LACTATED RINGERS 1,000 ML 42 ML IV ×2 (07:41→14:44)
[2022-06-15] MEDS: CEFAZOLIN 2 GM/100 ML PREMIX 100 ML IV (08:00)
[2022-06-15] MEDS: TRANEXAMIC ACID 1,000 MG VIAL 1000 MG INJ ×2 (08:15→09:20)
--- NOTE | 2022-06-15 08:25 | SUR.OPER ---
Supine on padded OR bed. Pillow under head, arms secured on padded armboards <90 degree abduction. Safety belt across torso. Non-operative leg secured with tape over blanket over lower leg. Operative leg secured in DeMayo positioner. Foam padded brace at thigh of operative leg.
[2022-06-15] MEDS: BUPIVACAINE 0.25% (PF) 60 ML, EPINEPHrine 0.3 MG INJ (08:28)
[2022-06-15] MEDS: BUPIVACAINE LIPOSOME 266 MG/20 ML VIAL INJ (08:28)
[2022-06-15] MEDS: MORPHINE 4 MG/ML INJ INJ (08:29)
--- NOTE | 2022-06-15 09:42 | P.OP_ITS ---
Operative Date/Time/Diagnoses Date of procedure: 06/15/22 Time of procedure: 09:42 Pre-op diagnosis: Right knee osteoarthritis Post-op diagnosis: same Procedure & Clinicians Procedure: Right total knee replacement Same procedure as scheduled: Yes Indications: The patient has had progressively worsening right knee pain with radiographic changes consistent with arthritis. Non-operative management has failed and the patient has requested total knee replacement. The risks, benefits and alternatives to surgery were discussed with the patient prior to proceeding. Risks discussed included, but were not limited to, failure to relieve pain, stiffness, infection, nerve damage, deep venous thrombosis, pulmonary embolism, stroke, coma, heart attack, permanent paralysis and , as well as the potential need for eventual revision of the prosthetic. Surgeon: Jamal Gonzalez [employer] Machine Operator: Phyllis Mota Click Yes if Unassisted: No Anesthesia Type: Spinal, Sedation and Local Operative Notes Findings: Severe medial and moderate patellofemoral osteoarthritis with loose bodies. Closure Type: primary Specimen(s): none sent Prosthetic devices, grafts, tissues, transplants, or devices: Implants used in this procedure were manufactured by the [employer] and [employer] and included the BCS II Journey total knee replacement with a size 6 right cobalt chromium femur, a size 6 right non porous tibial base plate, a 9 mm cross-linked polyethylene tibial insert and a 35 mm oval Lorena II patella. Applied: implant(s) Estimated Blood Loss (mL): 25 Blood products transfused: none Tourniquet time (min): 52 Procedure in detail: The patient was seen in the pre-operative area, where the patient identified the right knee as the operative site and this was marked with my initials. The patient received pre-operative antibiotics, and was taken to the operating room and placed on the operative table in the supine position. After satisfactory anesthesia, a machine compositor out was performed. The right leg was encircled with a tourniquet about the proximal thigh, and the leg was prepared from the toes to the tourniquet with ChloroPrep in the usual fashion and draped through sterile drapes. The leg was elevated and exsanguinated with Eschmark bandage and the tourniquet inflated to 250 mmHg pressure. The knee was approached through an approximately 18 cm incision centered over the patella and carried into the knee through a medial parapatellar arthrotomy. The anterior osteophytes and soft tissues were removed. The rotational landmarks of Rockcastle's line and the transepicondylar axis were marked on the femur with electrocautery, and intramedullary guide holes for the femur and tibia were created. The distal femoral cut was made in 6 degrees of valgus using the intramedullary guide at the primary cut setting. The proximal tibial cut was then made using the intramedullary guide, taking 9 mm of bone off the less involved side. The extension gap was checked and the rotation of the femoral component confirmed with the gap balancing system. The anterior, posterior and chamfer cuts were then made. The posterior osteophytes and soft tissues were then removed. The posterior capsule was injected with part of a mixture of 60 ml 0.25% Marcaine mixed with 20 ml Exparel and 4 mg of morphine for post-operative pain control. The remainder of this mixture was injected into the capsule and subcutaneous tissues during cement curing. The tibia was prepared with the rotation set by an extra medullary guide. Trial tibial and femoral components were then placed and the intercondylar notch cut through the femoral trial. Range of motion was 0-140 degrees, with good stability throughout the range. The patella was then cut to accommodate the patellar prosthetic. There was no need for a lateral release. The trials were then removed, and the femoral hole plugged with a bone plug. The bone was prepared with pulsatile lavage, and dried with a sponge. Cement was applied and the final prosthetics placed. Excess cement was removed during and after cement curing. After confirming there was no extruded cement posteriorly, the final tibial insert was placed. The knee was copiously irrigated and the tourniquet deflated. Hemostasis was obtained. The capsule was closed with interrupted # 2 polyester suture. The subcutaneous layer was closed with 3-0 Vicryl, and the skin with a running 3-0 V-Lock suture and Dermabond. An Aquacel Ag dressing was applied and the patient was taken to recovery having tolerated the procedure well. The services of Ms. Mota were required as a skilled clinical trial assistant to provide positioning, exposure and retraction to protect vital structures during this procedure. Without a skilled clinical trial assistant the procedure could not have been performed safely and expediently. Complications: none Post-operative Condition: stable Disposition: PACU Plan for aftercare: The patient will be maintained on a standard total knee replacement protocol with weight bearing as tolerated. The patient will receive aspirin and sequential compression devices for DVT prophylaxis. The patient will be discharged home when safe for the home environment.
[2022-06-15] MEDS: OXYCODONE IR 5 MG TABLET PO (11:39)
--- NOTE | 2022-06-15 12:46 | SUR.PHASEII ---
1235 Upon initial attempt to stand after procedure, pt c/o dizziness while seated at bedside, improved after return to supine, recheck vs wnl, exam otherwise unchanged
[2022-06-15] MEDS: ONDANSETRON 4 MG/2 ML INJ IV (13:08)
--- NOTE | 2022-06-15 13:47 | SUR.PHASEII ---
1340 upon pts second attempt to rise, c/o nausea and dizziness, pt placed in position of comfort on rt side, RLE exam unchanged, VS remain wnl, pt requesting maybe more time to rest, MD Gonzalez notified
--- NOTE | 2022-06-15 16:37 | SUR.PHASEII ---
1445 after a nap and some mannie lilia, pt reports feeling much better, ambulated to restroom using walker without c/o further nausea or dizziness, distal cms intact to RLE
== END 2022-06-15 16:40 | disposition home or self-care (01) ==
PROVIDERS: PCP Physician Assistant; Referring Provider Orthopaedic Surgery; Visit Provider Orthopaedic Surgery
PROC: 0SRC0JZ Replacement of Right Knee Joint with Synthetic Substitute, Open Approach (ICD-10-PCS; CPT 27447; principal; 2022-06-15 07:45)
DX: M17.11 Unilateral primary osteoarthritis, right knee (principal); Z72.0 Tobacco use; M23.41 Loose body in knee, right knee
CPT/HCPCS: 27447; 73560; C1776; C1713; C9290; J0171; J0690; J2270; J2405; J2704

== ENCOUNTER 2025-01-18 16:31 | Emergency (ER) | payer MEDICARE, OTHER, SELFPAY ==
[2021-06-21 11:18] VITALS: BMI 32.5
[2025-01-18 16:50] VITALS: BP 170/69; PULSE 53; RESP 18; TEMP 36.5; O2SAT 99; BMI 27.3
[2025-01-18] MEDS: TET,DIPH,PERTUSS(ACELL),VAC/PF 0.5 ML SYRINGE IM (19:57)
[2025-01-18] MEDS: AMOXICILLIN/CLAV 875/125 MG 1 TAB PO (20:31)
--- NOTE | 2025-01-18 20:32 | ED.SKABFB ---
HPI - Skin/Abscess/Foreign Bdy General Chief complaint: Skin/Abscess/Foreign Body Stated complaint: Lt arm pain, bruising Time Seen by Provider: 01/18/25 16:39 Source: patient Mode of arrival: Ambulatory Limitations: no limitations History of Present Illness HPI narrative: 74-year-old male was playing in [place] Monday 3 days ago, with someone's vaccinated [place] puppy, who playfully bit at his right lateral forearm, slight scratch, increasing redness over the last couple of days. No discharge. Able to move his arm wrist hands well. Does not feel feverish. Last tetanus more than 5 years ago. No other injuries. NKDA. Related Data Previous Rx's ?Medication ?Instructions ?Recorded atorvastatin 10 mg tablet (Lipitor) 10 mg PO HS #90 tabs 08/22/19 aspirin 81 mg tablet,delayed 81 mg PO BID #60 tabs 06/22/21 release ibuprofen 400 mg tablet 400 mg PO Q4HR #60 tabs 06/22/21 acetaminophen 325 mg tablet 650 mg (2 x 325 mg) PO Q4H PRN 06/15/22 Fever/Mild Pain (1-3) #250 tabs oxycodone 5 mg tablet 5 mg PO Q4H PRN Pain, Moderate 06/15/22 (4-6) #40 tabs amoxicillin 875 mg-potassium 1 tab PO BID #14 tabs 01/18/25 clavulanate 125 mg tablet Allergies Allergy/AdvReac Type Severity Reaction Status Date / Time No Known Drug Allergies Allergy Verified 06/15/22 07:11 Patient History Medical History (Updated 01/18/25 @ 20:36 by Boogie Hill MD) Anxiety Osteoarthritis Diverticulosis HLD (hyperlipidemia) Pneumonia Sinus bradycardia RBBB (right bundle branch block) CVA (cerebral vascular accident) (~2017) Shoulder pain (2003) Chicken pox (1960) Measles (1962) Mumps (1960) Fractures (1968) Cardiac arrhythmia (2006) Surgical History History of total left knee replacement (06/21/21) Hx of tonsillectomy History of vasectomy (03/1995) Hx of colonoscopy (03/17/20) Anesthesia History of hand surgery (2009) Status post wrist surgery (2007) Bey's fracture of base of metacarpal bone of left thumb (1969) Status post colonoscopy (2013) Status post rotator cuff repair (2005) Social History household members: spouse Smoking Status: Former smoker Smokeless tobacco user: chewing tobacco alcohol intake: current substance use type: marijuana Smoking Status: Former smoker tobacco type: smokeless tobacco alcohol intake frequency: a few times a week Exam Narrative Exam Narrative: GENERAL: Well-developed patient, in mild distress. HEAD: Atraumatic. Normocephalic. EYES: Pupils equal round and reactive. Extraocular motions intact. No scleral icterus. No injection or drainage. ENT: Nose without bleeding, purulent drainage. Throat without erythema, tonsillar hypertrophy or exudate. Airway patent. NECK: Trachea midline. Non tender CARDIOVASCULAR: Regular rate and rhythm without murmurs, gallops, or rubs. RESPIRATORY: Clear to auscultation. Breath sounds equal bilaterally. No wheezes, rales, or rhonchi. GASTROINTESTINAL: Abdomen soft, non-tender, nondistended. EXTREMITIES: Erythema and warmth proximally 10 x 8 cm patch, no fluctuance or crepitance, with central small scab consistent with recent reported animal bite scratch. BACK: Nontender without deformity or crepitance. No flank tenderness. NEURO: AOx3. Motor functions grossly nonfocal. SKIN: No rash or erythema of visible areas Initial Vital Signs Initial Vital Signs: Vital Signs Temperature 97.7 F 01/18/25 16:50 Pulse Rate 53 L 01/18/25 16:50 Respiratory Rate 18 01/18/25 16:50 Blood Pressure 170/69 H 01/18/25 16:50 Pulse Oximetry 99 01/18/25 16:50 Oxygen Delivery Method Room Air 01/18/25 16:50 Course Orders Ordered: Discontinued Medications Amoxicillin/Clavulanate Potassium (Amoxicillin/Clav 875/125 Mg) 1 tab PO NOW ONE Stop: 01/18/25 20:24 Last Admin: 01/18/25 20:31 Dose: 1 tab Documented By: DEBBYG Diphtheria/Tetanus/Acell Pertussis (Tet,Diph,Pertuss(Acell),Vac/Pf 0.5 Ml Syringe) 0.5 ml IM .ONCE ONE Stop: 01/18/25 19:47 Last Admin: 01/18/25 19:57 Dose: 0.5 ml Documented By: JESSICA Vital Signs Vital signs: Vital Signs - 8 hr 01/18/25 16:50 Temperature 97.7 F Pulse Rate 53 L Respiratory Rate 18 Blood Pressure 170/69 H Pulse Oximetry 99 Oxygen Delivery Method Room Air MDM - Skin/Abscess/Foreign Bdy MDM Narrative Medical decision making narrative: 74-year-old male with bite scratched injury to the right lateral forearm [place], increasing redness. 10 x 8 cm right lateral patch of redness and warmth left forearm, normal range of motion wrist and elbow. No fluctuance, no obvious drainable fluid. Not currently on any antibiotics. Tetanus updated. Animal bite, by history does not seem likely to have retained foreign body, discussed x-rays, hold for now, x-rays not performed. NKDA. First dose Augmentin antibiotic given in the emergency department, prescription sent to his pharmacy for further doses. Wound check with PCP advised this next week. Return precautions discussed. Discharged home with family. Discharge Plan Departure Patient Disposition: Home Clinical Impression: Infection of wound due to dog bite, Cellulitis of right forearm Activity Restrictions/Additional Instructions: Right lateral forearm dog bite scratched injury from a public [place] vaccinated [place] few days ago, increasing redness to the right lateral forearm with cellulitis. No obvious drainable fluid, no needle aspiration or open incision and drainage procedure today. We discussed x-rays but no obvious bony injury, and glancing scratched by wound did not seem typical for tooth breaking off for retained foreign body, x-rays held for now. Animal vermilion bite injury, seems low risk by history for rabies prophylaxis. Antibiotics indicated, no penicillin allergy, 1st dose of Augmentin antibiotic given in emergency department. Prescription for further antibiotics sent to your pharmacy. Advised recheck early this week. Return to this/nearest emergency department for any change worsening symptoms or any concerns prior. Tetanus shot also given in the emergency department today. Prescriptions: New amoxicillin-pot clavulanate 875-125 mg tablet 1 tab PO BID Qty: 14 0RF No Action atorvastatin [Lipitor] 10 mg tablet 10 mg PO HS Qty: 90 3RF Patient Comments: pt hasnt refilled in months aspirin 81 mg Tablet,Delayed Release (Dr/Ec) 81 mg PO BID Qty: 60 0RF ibuprofen 400 mg Tablet 400 mg PO Q4HR Qty: 60 0RF acetaminophen 325 mg Tablet 650 mg PO Q4H PRN (Reason: Fever/Mild Pain (1-3)) Qty: 250 0RF oxycodone 5 mg Tablet 5 mg PO Q4H PRN (Reason: Pain, Moderate (4-6)) Qty: 40 0RF Referrals: Beatriz Contreras PA-C [Primary Care Provider, Medical] Stand Alone Forms: Patient Portal/API
[2025-01-18 20:34] VITALS: BP 141/60; PULSE 53; RESP 17; O2SAT 98
== END 2025-01-18 20:45 | disposition home or self-care (01) ==
PROVIDERS: Emergency Provider Emergency Medicine; PCP Physician Assistant
DX: L03.113 Cellulitis of right upper limb (principal); S50.871A Other superficial bite of right forearm, initial encounter; W54.0XXA Bitten by dog, initial encounter; Z23 Encounter for immunization
CPT/HCPCS: 90471; 99283; 90715